=== PATIENT | female | born 1980 | race Two or more races ===

== ENCOUNTER 2021-02-10 16:11 | Emergency (ER) | payer OTHER, SELFPAY ==
[2021-02-10 16:30] VITALS: BP 136/78; PULSE 98; RESP 18; TEMP 36.3; O2SAT 97; BMI 23.2
--- NOTE | 2021-02-10 17:54 | ED_ITS ---
HPI - Back Pain/Injury General Chief Complaint: General Medical Stated Complaint: back pain Time Seen by Provider: 02/10/21 17:53 Source: patient Mode of arrival: ambulatory Limitations: no limitations History of Present Illness HPI Narrative: Patient complaining of low back pain for last 2 months no history of trauma patient comes in with multiple complaints pain going all the way from lower back to the upper neck with increased anxiety unable to see her PCP taking ibuprofen for pain also complaining of stomach issues that is going for long time taking Prilosec Related Data Previous Rx's Medication Instructions Recorded cyclobenzaprine 10 mg tablet 10 mg PO Q8H #20 tab 02/10/21 sucralfate 1 gram tablet 1 g PO BID #60 tab 02/10/21 Allergies Allergy/AdvReac Type Severity Reaction Status Date / Time tramadol [TRAMADOL] AdvReac Mild STOMACH Verified 02/10/21 16:33 UPSET Review of Systems Review of Systems: Yes all other systems are reviewed and are negative PMFSH Past Medical History Medical History Hernia Hypertension Social History Social History Advance Directives: No Advance Directives Information Provided: Yes Physical Exam Vital Signs: Vital Signs: Last Vital Signs Temp 97.3 F 02/10/21 16:30 Pulse 98 02/10/21 16:30 Resp 18 02/10/21 16:30 BP 136/78 02/10/21 16:30 Pulse Ox 97 02/10/21 16:30 Body Mass Index 23.2 Appearance: Alert. Oriented X3. No acute distress. Eyes: No pallor or icterus ENT: Pharynx normal. Oral Mucosa moist Neck: Normal inspection. Neck supple. CVS: Normal heart rate and rhythm. Pulses normal. Respiratory: No respiratory distress. Equal air entry bilateral, Abdomen: Soft and nontender. Bowel sounds are present, Skin: Skin warm and dry. Normal skin color. Normal skin turgor. Extremities: No lower extremity edema. No calf tenderness Back: Diffuse muscle spasm no midline spinal tenderness Neuro: Oriented X 3. MDM - Back Pain/Injury MDM Narrative Medical decision making narrative: Patient's symptoms more likely muscular/fibromyalgia discharge patient on Flexeril Discharge Plan Discharge Clinical Impression: Musculoskeletal back pain Patient Disposition: Home, Self-Care Instructions: Chronic Back Pain (DC) Additional Instructions: Take muscle relaxant as prescribed Avoid taking ibuprofen/Advil as you have stomach issues Take sucralfate for gastritis along with omeprazole [place] relajante muscular seg?n lo prescrito. Evite telma ibuprofeno / Advil ya que tiene problemas estomacales [place] sucralfato para la gastritis junto con omeprazol Prescriptions: New cyclobenzaprine 10 mg tablet 10 mg PO Q8H Qty: 20 RF: 0 sucralfate 1 gram tablet 1 g PO BID Qty: 60 RF: 0 Print Language: Sinhala
== END 2021-02-10 18:23 | disposition home or self-care (01) ==
PROVIDERS: Emergency Provider Internal Medicine; PCP Internal Medicine
DX: M54.50 Low back pain, unspecified (principal); Z79.899 Other long term (current) drug therapy
CPT/HCPCS: 99283

== ENCOUNTER 2022-01-29 11:18 | Outpatient (REF) | payer MEDICAID, SELFPAY ==
--- NOTE | ~2022-01-29 | XR_ITS ---
EXAMINATION: XR HIP, RIGHT CLINICAL INFORMATION: Osteoarthritis right hip. COMPARISON: None. TECHNIQUE: 2 views of the right hip. FINDINGS: There is no evidence of acute fracture or dislocation of the right hip. Right hip joint spaces maintained. No significant spurring is appreciated bone island within the right femoral neck is present. Subchondral cysts seen about the left pubic ramus. XR/XR hip RT min 2V IMPRESSION: No significant abnormality of the right hip identified.
[2022-01-29 11:26] LABS: MANUAL DIFF FLAG NO
[2022-01-29 12:01] LABS: Basophils Percent Auto 0.4 % (0-2); Eosinophils Absolute Auto 0.1 X10*3/uL (0.0-0.4); Hematocrit 39.1 % (37.0-47.0); Hemoglobin 12.3 g/dl (12.0-16.0); Imm Gran Abs Auto 0.02 X10*3/uL (0.00-0.03); Imm Gran Pct Auto 0.4 % (0.0-0.4); Lymphocytes Absolute Auto 2.8 X10*3/uL (1.2-4.9); Lymphocytes Percent Auto 50.3 % (20-40); Mean Corpuscular HGB Conc 31.5 g/dl (31.0-35.0); Mean Corpuscular Hemoglobin 25.7 pg (27.0-33.0); Mean Corpuscular Volume 81.6 fL (80.0-98.0); Monocytes Absolute Auto 0.5 X10*3/uL (0.1-1.2); Monocytes Percent Auto 9.3 % (2-11); Neutrophils Absolute Auto 2.1 x10*3/uL (2.0-8.3); Neutrophils Percent Auto 37.6 % (45-73); Platelet Count 415 X10*3/uL (160-400); Red Blood Count 4.79 X10*6/uL (4.20-5.50); Red Cell Distribution Width 12.9 % (11.0-16.0); White Blood Count 5.5 X10*3/uL (4.8-10.8)
[2022-01-29 12:31] LABS: Alanine Aminotransferase 7 U/L (0-31); Albumin Level 4.5 g/dL (3.5-5.0); Alkaline Phosphatase 45 U/L (39-117); Anion Gap 15 (12-20); Aspartate Amino Transferase 12 U/L (5-31); Bilirubin Total 1.9 mg/dL (0.0-1.0); Blood Urea Nitrogen 14 mg/dL (9-16); Calcium 9.8 mg/dL (8.4-10.2); Carbon Dioxide 23 mmol/L (22-29); Chloride 106 mmol/L (96-108); Cholesterol 139 mg/dL; Estimated Glomerular Filt Rate > 60; Glucose Random 78 mg/dL (60-115); HDL Cholesterol 56 mg/dL; LDL Cholesterol Calculated 70 mg/dl; Potassium 3.7 mmol/L (3.3-5.1); Sodium 140 mmol/L (135-145); Total Protein 7.5 g/dL (6.5-8.0); Triglycerides 65 mg/dL
[2022-01-29 12:51] LABS: Thyroid Stimulating Hormone 0.91 uIU/mL (0.32-4.0)
== END 2022-01-29 11:19 | disposition home or self-care (01) ==
LOC: HO.LAB 11:18
PROVIDERS: PCP Internal Medicine; Visit Provider Internal Medicine
DX: Z00.00 Encounter for general adult medical examination without abnormal findings (principal); I10 Essential (primary) hypertension; K44.9 Diaphragmatic hernia without obstruction or gangrene; M16.11 Unilateral primary osteoarthritis, right hip
CPT/HCPCS: 36415; 73502; 80053; 80061; 84443; 85025

== ENCOUNTER 2024-05-25 14:26 | Outpatient (REF) | payer MEDICAID, SELFPAY ==
--- OUTSIDE RECORDS SUMMARY | 2024-05-25 16:06 | XMS_ITS | Clinical Summary ---
Author Organization Patient Business Ser [facility] Address [address] [place] [address] Care Team Providers Care Military Source Operations Specialist Name Role Phone Kisha Lentz MD Primary Care Provider [phone] Allergies Active Allergy Reactions Criticality Noted Date Comments Tramadol Palpitations,Wheezing 12/09/2018 Medications Medication Sig Dispensed Refills Start Date End Date Status enalapril (VASOTEC) 5 mg tablet Take 1 tablet (5 mg total) by mouth 1 (one) time each day. 10/21/2023 Active omeprazole (PriLOSEC) [address] capsule Take 1 capsule (40 mg total) by mouth 1 (one) time each day. 08/01/2021 Active Active Problems Problem Noted Date Diagnosed Date GERD (gastroesophageal reflux disease) HTN (hypertension) 02/28/2024 NICOLE (iron deficiency anemia) 07/25/2021 Immunizations Name Administration Dates Next Due NuAx SARS-CoV-2 COVID-19, mRNA, LNP-S, preservative free 01/22/2021,01/01/2021 Tdap Tetanus diptheria acell ular pertussis (Boostrix; Adacel) 7yo and older 09/18/2017 Surgical History Surgery Date Site/Laterality Comments ABDOMINAL SURGERY 2017 PROCEDURE: HISTORICAL ABDOMINAL SURGERY; COMMENT: abdominoplasty TUBAL LIGATION PROCEDURE: HISTORICAL TUBAL LIGATION SECTION PROCEDURE: HISTORICAL DELIVERY BREAST SURGERY PROCEDURE: [place] UNLISTED PROCEDURE BREAST OTHER SURGICAL HISTORY PROCEDURE: IMPLANT BREAST SILICONE/EQ Medical History Medical History Date Comments HTN (hypertension) DX:HTN (hyper tension) GERD (gastroesophageal reflux disease) DX:GERD (gastroesophageal reflux disease) Family History Medical History Relation Name Comments No Known Problems Daughter 1 No Known Problems Daughter 2 No Known Problems Daughter 3 Alcohol abuse Father Cirrhosis Father Coronary artery disease Father Diabetes Father Heart attack Father Hypertension Father Liver cancer Father Breast cancer Mother Hypertension Mother No Known Problems Son 1 No Known Problems Son 2 Ovarian cancer Neg Hx Uterine cancer Neg Hx Relation Name Status Comments Daughter 1 Alive Daughter 2 Alive Daughter 3 Alive Father Mother Alive 40s Sister 1 Alive Sister 2 Alive Son 1 Alive Son 2 Alive Social History Tobacco Use Types Packs/Day Years Used Date Smoking Tobacco: Never Smokeless Tobacco: Never Alcohol Use Standard Drinks/Week Comments No 0 (1 standard drink = 0.6 oz pur e alcohol) Sex and Gender Information Value Date Recorded Sex Assigned at Not on file Gender Identity Not on file Sexual Orientation Not on file Job Start Date Occupation Industry Not on file Not on file Not on file Obstetrics History Last Filed Vital Signs Vital Sign Reading Time Taken Comments Blood Pressure 118/82 08/08/2023 10:40 AM EDT Pulse 52 08/08/2023 10:40 AM EDT Temperature - - Respiratory Rate - - Oxygen Saturation - - Inhaled Oxygen Concentration - - Weight 58.5 kg (129 lb) 08/08/2023 10:40 AM EDT Height 157.5 cm (5' 2 ) 08/08/2023 10:40 AM EDT Body Mass Index 23.59 08/08/2023 10:40 AM EDT Plan of Treatment Health Maintenance Due Date Last Done Comments Hepatitis B Vaccines (1 of 3 - 19+ 3-dose series) 1998 Colorectal Cancer Screening: Colonoscopy 06/10/2020 Depression Screening 06/10/2020 HIV Screening 06/10/2020 Hepatitis C Screening 06/10/2020 Social Influencers of Health Screening 06/10/2020 Cervical Cancer Screening: Pap Smear 09/02/2020 09/02/2017 Hypertension/CHF/CAD Annual BMP Blood Test 04/01/2022 Breast Cancer Screening 06/30/2023 06/30/19, 06/14/2020, 11/21/2017, Additional history exists COVID-19 Vaccine ( season) 2023 01/22/2021, 01/01/2021 Influenza Vaccine (#1) 2023 Cholesterol Screening (Lipid Panel) 03/27/2026 03/27/2021 DTaP,Tdap,and Td Vaccines (2 - Td or Tdap) 09/19/2027 09/18/2017 HIB Vaccines Aged Out No longer eligi ble based on patient's age to complete this topic HPV Vaccines Aged Out No longer eligi ble based on patient's age to complete this topic Hepatitis A Vaccines Aged Out No long er eligible based on patient's age to complete this topic IPV Vaccines Aged Out No longer eligi ble based on patient's age to complete this topic MMR Vaccines Aged Out No longer eligi ble based on patient's age to complete this topic Meningococcal ACWY Vaccine Aged Out N o longer eligible based on patient's age to complete this topic Pneumococcal Vaccine: Pediatrics (0 to 5 Years) and At-Risk Patients (6 to 64 Years) Aged Out No longer eligible based on patient's age to complete this topic RSV Immunization Patients Under 20 months Aged Out No longer eligible based on patient's age to complete this topic Varicella Vaccines Aged Out No longer eligible based on patient's age to complete this topic Procedures Procedure Name Priority Date/Time Associated Diagnosis Comments SCREENING MAMMOGRAPHY BI 2-VIEW BREAST INC CAD Routine 06/29/2021 10:12 AM EST Encounter for screening mammogram for malignant neoplasm of breast PAP SMEAR Routine 09/02/2017 from Last 3 Months or Most Recently Relevant to Health Maintenance Results * SCREENING MAMMOGRAPHY BI 2-VIEW BREAST INC CAD (06/29/2021 10:12 AM EST) Anatomical Region Laterality Modality Radiographic Lacie ging 06/14/2020 10:0 8 AM EST Narrative 06/29/2021 2:14 PM EST This is a summary report. The complete report is available in the patient's medical record. If you cannot access the medical record, please contact the sending organization for a detailed fax or copy. Full field digital screening 2D and 3D mammography with routine and displacement views, reviewed with CAD and compared to previous mammograms dating back to 11/15/2017 with most recent of 06/14/2020. The breast tissue is heterogeneously dense, limiting sensitivity. No suspicious mass, architectural distortion or suspicious calcifications are identified. The visualized silicone implants appear to be intact. IMPRESSION: : Dense breast tissue, limiting the sensitivity of mammography. No mammographic evidence of malignancy. BIRADS 1-Negative; N. 5 year breast cancer risk assessment 0.8 % Lifetime breast cancer risk assessment 12.6 % Breast cancer risk category Low (<15%) Procedure Note Lucía Hsu MD - 04/10/2022 This is a summary report. The complete report is available in thepatient's medical record. If you cannot access the medical record, pleasecontact the sending organization for a detailed fax or copy. Full field digital screening 2D and 3D mammography with routine anddisplacement views, reviewed with CAD and compared to previous mammogramsdating back to 11/15/2017 with most recent of 06/14/2020. The breast tissueis heterogeneously dense, limiting sensitivity. No suspicious mass,architectural distortion or suspicious calcifications are identified. The visualized silicone implants appear to be intact. IMPRESSION: : Dense breast tissue, limiting the sensitivity of mammography. Nomammographic evidence of malignancy. BIRADS 1-Negative; N. 5 year breast cancer risk assessment 0.8 % Lifetime breast cancer risk assessment 12.6 % Breast cancer risk category Low (<15%) Mary DAVIDSON IMG XR PROCEDURES * Pap smear (09/02/2017) 09/02/2017 Narrative HISTORICAL TESTING LAB RESULTING AGENCY - 09/04/2017 3:56 PM EDT [id number] THINPREP PAP, IMAGED: NEGATIVE FOR SQUAMOUS INTRAEPITHELIAL LESION AND MALIGNANCY ??. RESULT OF APTIMA HIGH RISK HPV ASSAY: ? NEGATIVE ?? (SEROTYPES 16,18,31,33,35,39,45,51,52,56,58,59,66,68) PIOTR WREN(ASCP) (CASE ELECTRONICALLY SIGNED 09 04 2017) ADEQUACY: SATISFACTORY. ENDOCERVICAL/TRANSFORMATION ZONE COMPONENT PRESENT. SOURCE: THINPREP PAP HPV ANY DX: ??REFLEX 16 AND 18, CERVICAL, IMAGED: CLINICAL INFORMATION: HPV ANY DIAGNOSIS. Z12.4, Z01.419, PAP HX NEGATIVE Keith Fong MD LAB CYTOLOGY OR DERABLES HISTORICAL TESTING LAB RESULTING AGENCY from Last 3 Months or Most Recently Relevant to Health Maintenance Care Teams Military Source Operations Specialist Relationship Specialty Start Date End Date Kisha Lentz MD [address] [place] [address] Dr Antione [place] [id number] PCP - General Internal Medicine 05/13/24
== END 2024-05-25 14:27 | disposition home or self-care (01) ==
LOC: HO.MAMMO 14:26
PROVIDERS: PCP Internal Medicine; Visit Provider Internal Medicine
DX: Z12.31 Encounter for screening mammogram for malignant neoplasm of breast (principal)
CPT/HCPCS: 77063; 77067

== ENCOUNTER → 2024-05-25 14:30 | Outpatient (BNV) | payer MEDICAID, SELFPAY | PROVIDERS: PCP Internal Medicine; Visit Provider Internal Medicine | DX: Z12.31 Encounter for screening mammogram for malignant neoplasm of breast (principal) | CPT/HCPCS: 77063; 77067 ==

== ENCOUNTER 2024-10-08 09:55 | Outpatient (REF) | payer MEDICAID, SELFPAY ==
[2024-10-08 10:20] LABS: MANUAL DIFF FLAG NO
[2024-10-08 10:35] LABS: Basophils Percent Auto 0.7 % (0-2); Eosinophils Absolute Auto 0.1 X10*3/uL (0.0-0.4); Eosinophils Percent Auto 1.8 % (0-4); Hematocrit 33.7 % (37.0-47.0); Imm Gran Abs Auto 0.02 X10*3/uL (0.00-0.03); Imm Gran Pct Auto 0.3 % (0.0-0.4); Lymphocytes Absolute Auto 2.9 X10*3/uL (1.2-4.9); Lymphocytes Percent Auto 48.3 % (20-40); Mean Corpuscular HGB Conc 26.7 g/dl (31.0-35.0); Mean Corpuscular Hemoglobin 17.6 pg (27.0-33.0); Mean Corpuscular Volume 65.9 fL (80.0-98.0); Mean Platelet Volume 8.2 fL (9.4-12.3); Monocytes Absolute Auto 0.6 X10*3/uL (0.1-1.2); Monocytes Percent Auto 9.7 % (2-11); Neutrophils Absolute Auto 2.4 x10*3/uL (2.0-8.3); Neutrophils Percent Auto 39.2 % (45-73); Platelet Count 524 X10*3/uL (160-400); Red Blood Count 5.11 X10*6/uL (4.20-5.50); Red Cell Distribution Width 24.9 % (11.0-16.0)
--- OUTSIDE RECORDS SUMMARY | 2024-10-08 11:02 | XMS_ITS | Encounter Summary ---
Author Organization [facility] Address [address] [place] [address] Care Team Providers Care Investigator Internal Affairs Name Role Phone Kisha Lentz MD Primary Care Provider [phone] Encounter Details Date Type Department Care Team (Late Contact Info) Description 10/07/[address] [facility] - Main Lab [address] [facility] [place] [address] Kisha Lentz MD [address] [place] [address] [place], [place] [id number] Other iron deficiency anemias Social History Tobacco Use Types Packs/Day Years Used Date Smoking Tobacco: Never Smokeless Tobacco: Never Alcohol Use Standard Drinks/Week Comments No 0 (1 standard drink = 0.6 oz pur e alcohol) Comments Unknown Sex and Gender Information Value Date Recorded Sex Assigned at Not on file Legal Sex Female 9:30 AM EST Gender Identity Not on file Sexual Orientation Not on file documented as of this encounter Plan of Treatment Upcoming Encounters Date Type Department Care Team (Late Contact Info) Description 10/08/2024 1:00 PM EDT Treatment Outpatient Rehabilitation - [address] [phone] Jenna Regalado, FOOD PREPARER 10/12/2024 1:30 PM EDT Treatment Outpatient Rehabilitation - [address] [phone] Tomasz Donahue, PT 10/15/2024 1:00 PM EDT Treatment Outpatient Rehabilitation - [address] [phone] Sabine Jenna, FOOD PREPARER 10/19/2024 1:30 PM EDT Treatment Outpatient Rehabilitation - [address] [phone] Jenna Regalado, FOOD PREPARER 10/22/2024 1:00 PM EDT Treatment Outpatient Rehabilitation - [address] [phone] Tomasz Donahue, PT 10/26/2024 1:30 PM EDT Treatment Outpatient [facility] - [address] [phone] Tomasz Donahue, PT 10/29/2024 1:00 PM EDT Treatment Outpatient Rehabilitation - [address] [phone] Tomasz Donahue, PT Scheduled Orders Name Type Priority Associated Diagnoses Orde r Schedule CBC and differential Lab Routine Other iron deficiency anemias Ordered: 10/07/2024 Vitamin B12 and folate Lab Routine Other iron deficiency anemias Ordered: 10/07/2024 Ferritin Lab Routine Other iron deficiency anemias Ordered: 10/07/2024 documented as of this encounter Goals Goal Patient Goal Type Associated Problems Recent Progress Patient-Stated? Author STG's 6 visits General Yes Tomasz Donahue, PT Note: Pt is Independent and compliant with initial HEP. Pt will perform correct technique for sup<->sit transfers w/ min VC's in 5/5 trials. Pt will report a 15 min increase in sit and stand tolerance w/out increase L hip pain. Pt will report a 1-2 point decrease in R hip pain during work activities. LTG's 12 visits General Yes Tomasz Donahue PT Note: Pt will be Independent and compliant with final HEP. Pt will I demonstrate proper technique for sup<->sit transfers in 5/5 trials. Pt will report a 25 min increase in sit and stand tolerance w/out increase L hip pain. Pt will report a 3 point decrease in R hip pain during work activities. documented as of this encounter Visit Diagnoses Diagnosis Other iron deficiency anemias documented in this encounter Care Teams Investigator Internal Affairs Relationship Specialty Start Date End Date Kisha Lentz MD [address] [place] [address] [place] [id number] PCP - General Internal Medicine 05/13/24 documented as of this encounter
[2024-10-08 11:49] LABS: Folate 11.1 ng/mL (> or = 4.0); Vitamin B12 473 pg/mL (200-900)
[2024-10-08 12:02] LABS: Ferritin 53 ng/mL (10-250)
== END 2024-10-08 09:56 | disposition home or self-care (01) ==
LOC: HO.LAB 09:55
PROVIDERS: PCP Internal Medicine; Visit Provider Internal Medicine
DX: D50.8 Other iron deficiency anemias (principal); N92.4 Excessive bleeding in the premenopausal period
CPT/HCPCS: 36415; 82607; 82728; 82746; 85025

== ENCOUNTER 2025-01-13 10:05 | Outpatient (REF) | payer MEDICAID, SELFPAY ==
[2025-01-13 10:26] LABS: MANUAL DIFF FLAG NO
[2025-01-13 11:12] LABS: Hematocrit 41.5 % (37.0-47.0); Hemoglobin 13.6 g/dl (12.0-16.0); Imm Gran Abs Auto 0.01 X10*3/uL (0.00-0.03); Imm Gran Pct Auto 0.2 % (0.0-0.4); Lymphocytes Absolute Auto 2.7 X10*3/uL (1.2-4.9); Mean Corpuscular HGB Conc 32.8 g/dl (31.0-35.0); Mean Corpuscular Hemoglobin 27.0 pg (27.0-33.0); Mean Corpuscular Volume 82.5 fL (80.0-98.0); NRBC Abs Auto 0.000 X10*3/uL (0.0-0.012); NRBC Pct Auto 0.0 /100WBC (0.0-0.2); Platelet Count 384 X10*3/uL (160-400); Red Blood Count 5.03 X10*6/uL (4.20-5.50); White Blood Count 6.0 X10*3/uL (4.8-10.8)
--- OUTSIDE RECORDS SUMMARY | 2025-01-13 12:20 | XMS_ITS | Encounter Summary ---
Author Organization [facility] Address [address] [place] [address] Care Team Providers Care Foil Spinner Name Role Phone Kisha Lentz MD Primary Care Provider [phone] Encounter Details Date Type Department Care Team (Late st Contact Info) Description 10/07/2024 Lab Requisition [facility] - Main Lab [address] [facility] [place] [address] Kisha Lentz MD [address] [place] [address] [place] [id number] Other iron deficiency anemias Social History Tobacco [...] as of this encounter Plan of Treatment Scheduled Orders Name Type Priority Associated Diagnoses [...] activities. LTG's 12 visits General Yes Tomasz Donahue, PT Note: Pt will be Independent and [...] anemias documented in this encounter Care Teams Foil Spinner Relationship Specialty Start Date End Date Kisha Lentz MD [address] [place] [address] [place] [id number] PCP - General Internal Medicine 05/13/24 documented as of this encounter
--- OUTSIDE RECORDS SUMMARY | 2025-01-13 12:20 | XMS_ITS | Clinical Summary ---
Author Organization Patient Business Ser [facility] Address [address] [place] [address] Care Team Providers Care Animal Rescuer Name Role Phone Kisha Lentz MD Primary Care Provider [phone] Allergies Active Allergy Reactions Criticality Noted Date Comments Tramadol Palpitations,Wheezing 12/09/2018 Medications enalapril (VASOTEC) 5 mg tablet Take 1 [...] 07/25/2021 Immunizations Name Administration Dates Next Due [employer] SARS-CoV-2 COVID-19, mRNA, LNP-S, preservative free 01/22/2021,01/01/2021 Tdap Tetanus diptheria acell ular pertussis (Boostrix; Adacel) 7yo and older 09/18/2017 Surgical History Surgery Date Site/Laterality Comments ABDOMINAL SURGERY 2017 PROCEDURE: HISTORICAL ABDOMINAL SURGERY; COMMENT: abdominoplasty TUBAL LIGATION PROCEDURE: HISTORICAL TUBAL LIGATION SECTION PROCEDURE: HISTORICAL DELIVERY BREAST SURGERY PROCEDURE: CA UNLISTED PROCEDURE BREAST OTHER SURGICAL HISTORY PROCEDURE: [...] on file Sexual Orientation Not on file Obstetrics History Last Filed [...] Done Comments Hepatitis B Vaccines (1 of - 19+ 3-dose series) 1998 Colorectal Cancer Screening: Colonoscopy 06/10/2020 HIV Screening 06/10/2020 Hepatitis C Screening 06/10/2020 Social Influencers of Health Screening 06/10/2020 Cervical Cancer Screening: Pap Smear 09/02/2020 09/02/2017 Breast Cancer Screening 06/30/2023 06/30/19 22, 06/14/2020, 11/21/2017, Additional history exists Depression Screening 04/22/2024 COVID-19 Vaccine ( season) 2024 01/22/2021, 01/01/2021 Influenza Vaccine (#1) 2024 Hypertension/CHF/CAD Annual BMP Blood Test 10/01/2025 10/01/2024 DTaP,Tdap,and Td Vaccines (2 - Td or Tdap) 09/19/2027 09/18/2017 Cholesterol Screening (Lipid Panel) 10/01/2029 10/01/2024, 03/27/2021 RSV Immunization Adult Patients (1 - 1-dose 75+ series) 2054 HIB Vaccines Aged Out No longer eligi [...] patient's age to complete this topic Meningococcal B Vaccine Aged Out No l onger eligible based on patient's age to complete this topic Pneumococcal Vaccine: Pediatrics (0 to 5 Years) and At-Risk Patients (6 to 49 Years) Aged Out No longer eligible based on patient's age to complete this topic RSV Immunization Patients Under 20 months Aged Out No longer eligible based on patient's age to complete this topic Varicella Vaccines Aged Out No longer eligible based on patient's age to complete this topic Goals Goal Patient Goal Type Associated Problems [...] in R hip pain during work activities. Procedures Procedure Name Priority Date/Time Associated Diagnosis Comments CBC WITH AUTO DIFFERENTIAL Routine 11/11/2024 2:48 PM EDT Anemia, unspecified Fatigue CBC AND DIFFERENTIAL Routine 11/11/2024 2:48 PM EDT Anemia, unspecified Fatigue HEMOGLOBIN ELECTROPHORESIS Routine 11/11/2024 2:48 PM EDT Anemia, unspecified Fatigue COMPREHENSIVE METABOLIC PANEL Routine 10/01/2024 8:14 AM EDT HTN (hypertension) NICOLE (iron deficiency anemia) Esophageal reflux LIPID PANEL WITH REFLEX TO DIRECT LDL Routine 10/01/2024 8:14 AM EDT HTN (hypertension) NICOLE (iron deficiency anemia) SCREENING MAMMOGRAPHY BI 2-VIEW BREAST INC CAD Routine 06/29/2021 10:12 AM EST Encounter for screening mammogram for malignant neoplasm of breast PAP SMEAR Routine 09/02/2017 from Last 3 Months or Most Recently Relevant to Health Maintenance Results * (ABNORMAL) CBC auto differential (11/11/2024 2:48 PM EDT) WBC 5.8 4.8 - 10.8 K/mcL LAB HEMETOLOGY METHOD 11/11/2024 5:06 PM [facility] RBC 5.00(H) 3.80 - 4.80 M/mcL LAB HEMETOLOGY METHOD 11/11/2024 5:06 PM [facility] Hemoglobin 11.2(L) 11.5 - 16.0 g/dL LAB HEMETOLOGY METHOD 11/11/2024 5:06 PM [facility] Hematocrit 39.0 35.0 - 47.0 % LAB HEMETOLOGY METHOD 11/11/2024 5:06 PM [facility] MCV 78.5(L) 79.0 - 98.0 FL LAB HEMETOLOGY METHOD 11/11/2024 5:06 PM [facility] MCH 22.5(L) 27.0 - 32.0 pcg LAB HEMETOLOGY METHOD 11/11/2024 5:06 PM [facility] MCHC 28.7(L) 32.0 - 37.0 g/dL LAB HEMETOLOGY METHOD 11/11/2024 5:06 PM [facility] RDW LAB HEMETOLOGY METHOD 11/11/2024 5:06 PM [facility] Comment:Not Measured Platelets 433(H) 130 - 400 K/mcL LAB HEMETOLOGY METHOD 11/11/2024 5:06 PM [facility] MPV 9.1 7.0 - 11.0 FL LAB HEMETOLOGY METHOD 11/11/2024 5:06 PM [facility] NRBC 0.0 <1.0 % LAB HEMETOLOGY METHOD 11/11/2024 5:06 PM [facility] NRBC Absolute 0.00 <0.10 K/mcL LAB HEMETOLOGY METHOD 11/11/2024 5:06 PM [facility] Neutrophils Relative 45.5 % LAB HEMETOLOGY METHOD 11/11/2024 5:06 PM [facility] Lymphocytes Relative 40.2 % LAB HEMETOLOGY METHOD 11/11/2024 5:06 PM [facility] Monocytes Relative 10.8 % LAB HEMETOLOGY METHOD 11/11/2024 5:06 PM [facility] Eosinophils Relative 2.7 % LAB HEMETOLOGY METHOD 11/11/2024 5:06 PM [facility] Basophils Relative 0.5 % LAB HEMETOLOGY METHOD 11/11/2024 5:06 PM [facility] Immature Granulocytes Relative 0.3 % LAB HEMETOLOGY METHOD 11/11/2024 5:06 PM [facility] Neutrophils Absolute 2.65 1.50 - 7.00 K/mcL LAB HEMETOLOGY METHOD 11/11/2024 5:06 PM EDT [facility] Lymphocytes Absolute 2.35 1.00 - 5.00 K/mcL LAB HEMETOLOGY METHOD 11/11/2024 5:06 PM EDT [facility] Monocytes Absolute 0.63 0.20 - 1.00 K/mcL LAB HEMETOLOGY METHOD 11/11/2024 5:06 PM EDT [facility] Eosinophils Absolute 0.16 0.00 - 0.50 K/[facility] LAB HEMETOLOGY METHOD 11/11/2024 5:06 PM EDT [facility] Basophils Absolute 0.03 0.00 - 0.20 K/mcL LAB HEMETOLOGY METHOD 11/11/2024 5:06 PM EDT [facility] Immature Granulocytes Absolute 0.02 0.00 - 0.03 K/[facility] LAB HEMETOLOGY METHOD 11/11/2024 5:06 PM EDT [facility] Blood Venous blood specimen / Unknown Venipuncture / Unknown 11/11/2024 2:48 PM EDT 11/11/2024 2:48 PM EDT us Kisha Lentz MD LAB BLOOD ORDERABLES Final Re sult [facility] [address] [place] [address], * (ABNORMAL) Hemoglobin electrophoresis (11/11/2024 2:48 PM EDT) Hemoglobin A1 97.9(H) 96.5 - 97.8 % 11/16/2024 2:08 PM EDT [facility] Hemoglobin A2 2.1(L) 2.2 - 3.2 % 11/16/2024 2:08 PM EDT [facility] Hemoglobin F 0.0 <2.0 % 11/16/2024 2:08 PM EDT [facility] Hemoglobin S 0.0 0.0 % 11/16/2024 2:08 PM EDT [facility] Hemoglobin C 0.0 0.0 % 11/16/2024 2:08 PM EDT [facility] Interpretation See Below 11/16/2024 2:08 PM EDT [facility] Comment: No abnormal hemoglobin variants seen on hemoglobin electrophoresis. Hemoglobin A2 is decreased. Common causes include, but are not limited to, iron deficiency, alpha thalassemia, and delta thalassemia. Test performed at [facility], [address], [place] [address] Sophia Manning MD, PhD - Computer Lab Aide Blood Venous blood specimen / Unknown Venipuncture / Unknown 11/11/2024 2:48 PM EDT 11/11/2024 2:48 PM EDT us Kisha Lentz MD LAB BLOOD ORDERABLES Final Re sult [facility] [address] [place] [address] * Lipid panel with reflex to direct LDL (10/01/2024 8:14 AM EDT) Cholesterol 143 0 - 200 mg/dL LAB CHEMISTRY METHOD 10/01/2024 11:47 AM EDT [facility] Triglycerides 69 0 - 150 mg/dL LAB CHEMISTRY METHOD 10/01/2024 11:47 AM EDT [facility] HDL 62 >=40 mg/dL LAB CHEMISTRY METHOD 10/01/2024 11:47 AM EDT [facility] LDL Calculated 67 0 - 100 mg/dL LAB CHEMISTRY METHOD 10/01/2024 11:47 AM EDT [facility] VLDL Cholesterol Sridhar 13.8 mg/dL LAB CHEMISTRY METHOD 10/01/2024 11:47 AM EDT [facility] Non HDL Chol. (LDL+VLDL) 81 <145 mg/dL LAB CHEMISTRY METHOD 10/01/2024 11:47 AM EDT [facility] Chol/HDL Ratio 2.3 0.0 - 4.4 LAB CHEMISTRY METHOD 10/01/2024 11:47 AM [facility] Blood Venous blood specimen / Unknown Venipuncture / Unknown 10/01/2024 8:14 AM EDT 10/01/2024 8:14 AM EDT us Kisha Lentz MD LAB BLOOD ORDERABLES Final Re sult [facility] [address] [place] [address], [place] [phone] * Comprehensive metabolic panel (10/01/2024 8:14 AM EDT) Sodium 139 133 - 145 mmol/L LAB CHEMISTRY METHOD 10/01/2024 11:47 AM [facility] Potassium 4.4 3.5 - 5.5 mmol/L LAB CHEMISTRY METHOD 10/01/2024 11:47 AM [facility] Comment:Hemolysis present Chloride 106 96 - 110 mmol/L LAB CHEMISTRY METHOD 10/01/2024 11:47 AM [facility] CO2 27 21 - 32 mmol/L LAB CHEMISTRY METHOD 10/01/2024 11:47 AM [facility] Anion Gap 6 3 - 11 LAB CHEMISTRY METHOD 10/01/2024 11:47 AM [facility] Glucose 95 70 - 100 mg/dL LAB CHEMISTRY METHOD 10/01/2024 11:47 AM [facility] BUN 10 5 - 25 mg/dL LAB CHEMISTRY METHOD 10/01/2024 11:47 AM [facility] Creatinine 0.57 0.50 - 1.10 mg/dL LAB CHEMISTRY METHOD 10/01/2024 11:47 AM [facility] eGFR 114 >=60 mL/min/1. 73m2 LAB CHEMISTRY METHOD 10/01/2024 11:47 AM [facility] Comment:Calculation based on the Chronic Kidney Disease Epidemiology Collaboration (CKD-EPI) equation refit without adjustment for race. BUN/Creatinine Ratio 17.5 LAB CHEMISTRY METHOD 10/01/2024 11:47 AM [facility] Calcium 9.1 8.5 - 10.5 mg/dL LAB CHEMISTRY METHOD 10/01/2024 11:47 AM [facility] AST (SGOT) 19 10 - 42 unit/L LAB CHEMISTRY METHOD 10/01/2024 11:47 AM [facility] ALT (SGPT) 23 10 - 60 unit/L LAB CHEMISTRY METHOD 10/01/2024 11:47 AM [facility] Alkaline Phosphatase 65 42 - 121 unit/L LAB CHEMISTRY METHOD 10/01/2024 11:47 AM [facility] Total Protein 7.2 6.0 - 8.0 g/dL LAB CHEMISTRY METHOD 10/01/2024 11:47 AM [facility] Albumin 3.6 3.2 - 5.0 g/dL LAB CHEMISTRY METHOD 10/01/2024 11:47 AM [facility] Total Bilirubin 1.3 0.0 - 1.4 mg/dL LAB CHEMISTRY METHOD 10/01/2024 11:47 AM [facility] Blood Venous blood specimen / Unknown Venipuncture / Unknown 10/01/2024 8:14 AM EDT 10/01/2024 8:14 AM EDT us Kisha Lentz MD LAB BLOOD ORDERABLES Final Re sult [facility] [address] [place] [address], * SCREENING MAMMOGRAPHY BI 2-VIEW BREAST INC [...] Low (<15%) Mary DAVIDSON IMG XR PROCEDURES Final Result * Pap smear (09/02/2017) 09/02/2017 Narrative HISTORICAL TESTING LAB RESULTING AGENCY - 09/04/2017 3:56 PM EDT [id number] THINPREP PAP, IMAGED: NEGATIVE FOR SQUAMOUS INTRAEPITHELIAL LESION AND MALIGNANCY . RESULT OF APTIMA HIGH RISK HPV ASSAY: NEGATIVE (SEROTYPES 16,18,31,33,35,39,45,51,52,56,58,59,66,68) PIOTR WREN(ASCP) (CASE ELECTRONICALLY SIGNED 09 04 2017) ADEQUACY: SATISFACTORY. ENDOCERVICAL/TRANSFORMATION ZONE COMPONENT PRESENT. SOURCE: THINPREP PAP HPV ANY DX: REFLEX 16 AND 18, CERVICAL, IMAGED: CLINICAL INFORMATION: HPV ANY DIAGNOSIS. Z12.4, Z01.419, PAP HX NEGATIVE us Keith Fong MD LAB CYTOLOGY ORDERABLES Final Result HISTORICAL TESTING LAB RESULTING AGENCY from Last 3 Months or Most Recently Relevant to Health Maintenance Insurance MEDICAID - [place] Care Teams Animal Rescuer Relationship Specialty Start Date End Date Kisha Lentz MD [address] [place] [address] [place] [phone] PCP - General Internal Medicine 05/13/24
== END 2025-01-13 10:06 | disposition home or self-care (01) ==
LOC: HO.LAB 10:05
PROVIDERS: PCP Internal Medicine; Visit Provider Internal Medicine
DX: D56.0 Alpha thalassemia (principal)
CPT/HCPCS: 36415; 85025